=== PATIENT | female | born 1990 | race Caucasian/White ===

== ENCOUNTER → 2024-01-22 15:08 | Outpatient (CLI) | payer OTHER, SELFPAY ==
--- NOTE | 2024-01-22 15:11 | DI.MRI.S_ITS ---
PROCEDURE: MR HEAD/BRAIN WO/W CON INDICATIONS: HEADACHES W/NEUROLOGIC DEFICITS W/ CONCERN FOR MS TECHNIQUE: Noncontrast axial T1 spin echo, axial T2 fast spin echo, sagittal and axial FLAIR, coronal T2 fast spin echo, axial gradient echo, axial diffusion and ADC through the brain. After the administration of contrast, axial and coronal and sagittal 3D VIBE or T1 spin echo with fat saturation through the brain. COMPARISON: None. FINDINGS: Image quality: Excellent. CSF Spaces: Basal cisterns are patent. No extra-axial fluid collections. Ventricles are normal in size and shape. Brain: No midline shift. No intracranial bleeds or masses. No abnormal intracranial enhancement. The brainstem appears normal. Diffusion-weighted images demonstrate no acute infarct. No chronic ischemic insults. Normal intravascular flow voids are present. Skull and face: Calvarial marrow is normal in signal. Orbits appear normal. Sinuses: Mild diffuse paranasal sinus mucosal thickening. The mastoids appear clear. IMPRESSION: No evidence of multiple sclerosis. No cause for patient's symptoms is identified. Normal appearance of the brain. Dictated by: Jesus Ibrahim M.D. on 01/22/2024 at 20:40 Approved by: Jesus Ibrahim M.D. on 01/22/2024 at 20:43
== END ==
LOC: MRI 15:09
DX: R15.9 Full incontinence of feces (principal)
CPT/HCPCS: 70553; A9579